=== PATIENT | female | born 1945 | race Two or more races ===

== ENCOUNTER 2016-11-01 19:46 | Observation (INO) | payer OTHER ==
[~2016-11-01] VITALS: Ht 157.5 cm; Wt 65.3 kg
[2016-11-01] MEDS ORDERED: SODIUM CHLORIDE 0.9% 1,000 ML IV ONE (20:55)
[2016-11-01 21:45] LABS: PROTHROMBIN TIME 10.7 sec
[2016-11-01 21:46] LABS: BASOPHILS % 0.5 % (0.0-2.0); EOSINOPHILS % 1.5 % (0.0-5.0); HEMATOCRIT. 38.3 % (36.0-48.0); HEMOGLOBIN. 12.9 g/dL (12.0-16.0); LYMPHOCYTES % 32.4 % (20.0-50.0); MEAN CORPUSCULAR HEMOGLOBIN 27.2 pg (28.0-32.0); MEAN CORPUSCULAR VOLUME 81.2 fL (81.0-99.0); MEAN PLATELET VOLUME 8.2 fl (7.4-10.4); MONOCYTES % 14.3 % (2.0-8.0); NEUTROPHILS % 51.3 % (40.0-76.0); PLATELET 226 x1000/uL (130-400); RED BLOOD CELL COUNT 4.72 mill/uL (4.2-5.4); RED CELL DISTRIBUTION WIDTH 14.8 % (11.6-14.6)
[2016-11-01 21:49] LABS: AMMONIA 16 uMol/L (<32)
[2016-11-01 21:59] LABS: CARBON DIOXIDE 26 mEq/L (21-32); CHLORIDE 106 mEq/L (98-107); ETHANOL BLOOD < 10 mg/dL
[2016-11-01 22:02] LABS: PHENYTOIN 1.1 ug/mL (10-20)
[2016-11-01 22:03] LABS: CREATINE KINASE 72 IU/L (26-192); TROPONIN I < 0.02 ng/mL (0.00-0.04)
[2016-11-01 22:04] LABS: CARBAMAZEPINE < 0.5 ug/mL (4-12); PHENOBARBITAL < 2.1 ug/mL (15.0-40.0); VALPROIC ACID < 3.0 ug/mL (50-100)
[2016-11-02 00:17] LABS: CLARITY URINE CLEAR (CLEAR); COLOR URINE YELLOW (YELLOW); GLUCOSE URINE NEGATIVE (NEGATIVE); KETONES URINE NEGATIVE (NEGATIVE); LEUKOCYTE ESTERASE URINE NEGATIVE (NEGATIVE); NITRITE URINE NEGATIVE (NEGATIVE); OCCULT BLOOD URINE TRACE (NEGATIVE); PH URINE 5.5 (4.5-8.0); PROTEIN URINE NEGATIVE (NEGATIVE); SPECIFIC GRAVITY URINE 1.012 (1.005-1.030); UROBILINOGEN URINE 0.2 E.U./dL (0.2-1.0)
[2016-11-02 00:40] LABS: *AMPHETAMINES SCREEN URINE NEGATIVE (NEGATIVE); *BARBITURATES SCREEN URINE NEGATIVE (NEGATIVE); *BENZODIAZEPINES SCREEN URINE PRESUMTIVE POSITIVE (NEGATIVE); *COCAINE SCREEN URINE NEGATIVE (NEGATIVE); CANNABINOID URINE SCREEN NEGATIVE (NEGATIVE); METHADONE URINE SCREEN NEGATIVE (NEGATIVE); OPIATES URINE SCREEN NEGATIVE (NEGATIVE); PHENCYCLIDINE URINE SCREEN NEGATIVE (NEGATIVE)
[2016-11-02] MEDS ORDERED: CLONIDINE 0.1MG TABLET PO ONE (00:45)
[2016-11-02] MEDS ORDERED: METO25TA6 PO (05:26)
[2016-11-02] MEDS ORDERED: KDUR10 PO (05:26)
[2016-11-02] MEDS ORDERED: CLON0.1T PO (05:26)
[2016-11-02] MEDS ORDERED: ATOR10TA69 PO (05:26)
[2016-11-02] MEDS ORDERED: TEMA15CA46 PO (05:26)
[2016-11-02] MEDS ORDERED: FERR-63 PO (05:26)
[2016-11-02] MEDS ORDERED: TRAV2.5D EACHEYE (05:28)
[2016-11-02] MEDS ORDERED: ASPI-1159 PO (05:28)
[2016-11-02] MEDS ORDERED: BRIM15DR2 EACHEYE (05:28)
[2016-11-02] MEDS ORDERED: FURO80TA3 PO (05:28)
[2016-11-02] MEDS ORDERED: AZOPT BOTHEYE (05:28)
[2016-11-02 05:30] VITALS: BP 155/74
[2016-11-02 05:43] VITALS: BP 155/74
[2016-11-02] MEDS ORDERED: DEXT 5%/0.45% NACL 1000ML 1,000 ML IV SCH (06:00)
[2016-11-02] MEDS ORDERED: HYDROCODONE/ACETAMINOPHEN 5/325MG TABLET PO PRN (06:00)
[2016-11-02] MEDS ORDERED: CLONIDINE 0.1MG TABLET PO PRN (06:00)
[2016-11-02 08:00] VITALS: BP 159/43
[2016-11-02] MEDS ORDERED: ENOXAPARIN 30MG/0.3ML SYR SUBCUT SCH (09:00)
[2016-11-02] MEDS ORDERED: ENOXAPARIN 40MG/0.4ML SYR SUBCUT SCH (09:00)
[2016-11-02 12:00] VITALS: BP 148/43
[2016-11-02 16:07] VITALS: BP 148/43
== END 2016-11-02 18:20 | disposition home or self-care (01) ==
LOC: ER 20:00 → 7WST 23:31 → INTOOBSV 23:31 → EDBEDREQ 23:40 → ENRESERV 23:45 → CANRESERV 23:45 → EDBEDREQSVC 11-02 01:45 → ENRESERV 11-02 01:55 → EDBEDREQSVC 11-02 01:56
PROVIDERS: ADMIT Internal Medicine; ATTEND Internal Medicine
DX: R53.1 Weakness (principal); E78.00 Pure hypercholesterolemia, unspecified; F17.210 Nicotine dependence, cigarettes, uncomplicated; I12.9 Hypertensive chronic kidney disease with stage 1 through stage 4 chronic kidney disease, or unspecified chronic kidney disease; N18.9 Chronic kidney disease, unspecified; R62.7 Adult failure to thrive; R25.1 Tremor, unspecified; Z82.49 Family history of ischemic heart disease and other diseases of the circulatory system; Z90.710 Acquired absence of both cervix and uterus
CPT/HCPCS: 36415; 70450; 71010; 80048; 80053; 80156; 80165; 80184; 80185; 80305; 81001; 82140; 82550; 83605; 83880; 84443; 84484; 85025; 85610; 87040; 93005; 96360; 96361; 96372; 97162; G0378; G0482; J1650; J7030; J3490

== ENCOUNTER → 2024-01-12 | Emergency (ER) | payer MEDICARE, BC ==
[~2024-01-12] VITALS: Ht 157.5 cm; Wt 39.0 kg
[~2024-01-12] MED LIST: ALBU6.7H3 INH; ALLO100T57 PO; ALPR0.5T PO; ASPI-1497 PO; ATOR10TA69 PO; BUDE6HFA INH; DORZ1DRO12 OP; FLUO40CA8 PO; FURO40TA5 PO; HYDR50TA39 PO; IOHEXOL-300 100 ML BOTTLE ONE; MELA5TAB21 PO; METO25TA6 PO; OLAN2.5T3 PO; P20 PO; POTA-189 PO; TRAV2.5D EACHEYE
[2024-01-12 15:52] VITALS: TEMP 98.6; O2SAT 100
[2024-01-12 17:49] LABS: BASOPHILS % 0.3 % (0.0-2.0); HEMATOCRIT. 36.2 % (36.0-48.0); HEMOGLOBIN. 11.8 g/dL (12.0-16.0); LYMPHOCYTES % 25.8 % (20.0-50.0); MEAN CORPUSCULAR HGB CONC 32.6 g/dL (31.0-37.0); MEAN CORPUSCULAR VOLUME 89.1 fL (81.0-99.0); MEAN PLATELET VOLUME 8.6 fl (7.4-10.4); MONOCYTES % 12.2 % (2.0-8.0); NEUTROPHILS % 61.7 % (40.0-76.0); PLATELET 235 x1000/uL (130-400); RED BLOOD CELL COUNT 4.06 mill/uL (4.2-5.4); RED CELL DISTRIBUTION WIDTH 17.3 % (11.6-14.6); WHITE BLOOD COUNT 5.6 x1000/uL (4.5-11.0)
[2024-01-12 17:59] LABS: CHLORIDE 110 mEq/L (98-107); POTASSIUM 4.3 mEq/L (3.5-5.1); SODIUM 137 mEq/L (136-145)
[2024-01-12 18:00] LABS: CARBON DIOXIDE 22 mEq/L (21-32)
[2024-01-12 18:01] LABS: CALCIUM 8.6 mg/dL (8.7-10.4)
[2024-01-12 18:05] LABS: CREATININE 1.4 mg/dL (0.6-1.0); GLUCOSE 83 mg/dL (70-105); UREA NITROGEN BLOOD 10 mg/dL (9-23)
[2024-01-12 18:06] LABS: TROPONIN I HIGH SENSITIVITY 5 ng/L (3.0-34)
[2024-01-12 21:00] VITALS: BP 139/86; PULSE 71; RESP 19; O2SAT 100
== END | disposition home or self-care (01) ==
LOC: ER 15:50
DX: R63.4 Abnormal weight loss (principal); I10 Essential (primary) hypertension; Z79.899 Other long term (current) drug therapy; Z90.710 Acquired absence of both cervix and uterus
CPT/HCPCS: 99285; 74177; 80048; 85025; 84484; 36415; 93005; Q9967